=== PATIENT | male | born 1975 | race African-American/Black ===

== ENCOUNTER 2024-12-05 13:39 | Inpatient (IN) | payer OTHER ==
[~2024-12-05] VITALS: Ht 185.4 cm; Wt 81.2 kg
[~2024-12-05 13:39] MED LIST: AMOX-457 PO
[2024-12-05 14:17] LABS: PLATELET COUNT (AUTO) 264 K/uL (150-450); RED BLOOD CELL COUNT(AUTO) 3.92 MIL/uL (4.50-5.90); RED CELL DISTRIBUTION WIDTH 14.2 % (11.5-14.5); WHITE BLOOD COUNT (AUTO) 4.1 K/uL (4.5-11.0)
[2024-12-05 14:27] LABS: CREATININE 0.84 mg/dL (0.60-1.30); GLUCOSE,RANDOM 91 mg/dL (70-110); SODIUM SERUM 142 mmol/L (136-145); UREA NITROGEN, BLOOD 11 mg/dL (7-18)
[2024-12-05 14:28] LABS: CALCIUM, TOTAL 8.9 mg/dL (8.8-10.5); GLOMERULAR FILTR. RATE CALC > 60 mL/min (>60)
[2024-12-05 14:32] LABS: ASPARTATE AMINOTRANSFERASE 17 U/L (15-37); CREATINE KINASE, TOTAL ONLY 154 U/L (39-308); TOTAL PROTEIN, SERUM 6.7 g/dL (6.4-8.2)
[2024-12-05 14:34] LABS: TROPONIN I-HIGH SENSITIVITY Less Than 4 ng/L (<76)
[2024-12-05 14:44] LABS: ALCOHOL, BLOOD (SERUM) < 3 mg/dL (0-10)
[2024-12-05 15:26] LABS: COVID AG,FIA SOURCE NASAL SWAB
[2024-12-05] MEDS ORDERED: DEXTROSE 5% IV PRN (15:30)
[2024-12-05] MEDS ORDERED: NALOXONE HCL IV PRN (15:30)
[2024-12-05] MEDS ORDERED: WATER IV PRN (15:30)
[2024-12-05 15:37] LABS: PH,URINE DRUG SCREEN 8.0 (5.0-8.0)
[2024-12-05 15:44] LABS: ALCOHOL, URINE DRUG SCREEN NEGATIVE (NEGATIVE); AMPHET/METH SCREEN,URINE POSITIVE (NEGATIVE); BARBITURATE SCREEN, URINE NEGATIVE (NEGATIVE); CANNABINOID SCREEN,URINE POSITIVE (NEGATIVE); COCAINE SCREEN,URINE NEGATIVE (NEGATIVE); METHADONE SCREEN, URINE NEGATIVE (NEGATIVE)
[2024-12-05 15:45] LABS: SARS-COV2 (COVID) ANTIGEN,FIA Negative (Negative)
[2024-12-05] MEDS ORDERED: NALOXONE HCL 1 MG/ML 2 ML SYRINGE IVP PRN (17:30)
[2024-12-05] MEDS ORDERED: ACETAMINOPHEN 325 MG TABLET PO PRN (17:30)
[2024-12-05] MEDS: NALOXONE HCL 1 MG/ML 2 ML SYRINGE IVP ONE (18:30)
[2024-12-05] MEDS: ONDANSETRON HCL 4 MG/2 ML VIAL IVP PRN (18:52)
[2024-12-05] MEDS: LORazepam 2 MG/ML VIAL IVP ONE (18:55)
[2024-12-05 20:50] VITALS: BP 117/80; PULSE 84; RESP 12; TEMP 99; O2SAT 100
[2024-12-05] MEDS: DOCUSATE SODIUM 100 MG CAPSULE PO SCH (21:00)
[2024-12-05] MEDS: NALOXONE HCL 1 MG/ML 2 ML SYRINGE IVP SCH (22:01)
[2024-12-05] MEDS: MAGNESIUM SULFATE 2 GM, MVI, ADULT NO.1 WITH VIT K 10 ML, THIAMINE 100 MG, FOLIC ACID 1... IV ONE (22:12)
[2024-12-05] MEDS: HEPARIN SODIUM,PORCINE 5,000 UNITS/ML VIAL SQ SCH (23:09)
[2024-12-05 23:51] VITALS: BP_SYST 105; BP_SYST 99; BP_DIAS 86; PULSE 85; RESP 26; TEMP 98.4; O2SAT 100
[2024-12-06] MEDS ORDERED: ALBUTEROL SULFATE 2.5 MG/0.5 ML NEB SOLUTION NEB PRN (01:45)
[2024-12-06] MEDS ORDERED: IPRATROPIUM BROMIDE 0.5 MG/2.5 ML NEB SOLUTION NEB PRN (01:45)
[2024-12-06] MEDS ORDERED: SODIUM CHLORIDE 0.9% 250 ML IV ONE (02:18)
[2024-12-06] MEDS: PIPERACILLIN/TAZO 3.375 GM/D5W 50 ML IV SCH (02:58)
[2024-12-06 03:31] VITALS: BP 122/93; PULSE 79; RESP 26; TEMP 98.4; O2SAT 100
[2024-12-06 05:05] VITALS: RESP 22; O2SAT 100
[2024-12-06 06:13] LABS: PLATELET COUNT (AUTO) 290 K/uL (150-450); RED BLOOD CELL COUNT(AUTO) 4.19 MIL/uL (4.50-5.90); RED CELL DISTRIBUTION WIDTH 14.3 % (11.5-14.5); WHITE BLOOD COUNT (AUTO) 3.5 K/uL (4.5-11.0)
[2024-12-06 06:18] LABS: CALCIUM, TOTAL 8.9 mg/dL (8.8-10.5); CREATININE 0.81 mg/dL (0.60-1.30); GLOMERULAR FILTR. RATE CALC > 60 mL/min (>60); GLUCOSE,RANDOM 100 mg/dL (70-110); SODIUM SERUM 140 mmol/L (136-145); UREA NITROGEN, BLOOD 11 mg/dL (7-18)
[2024-12-06 08:29] VITALS: BP 139/80; PULSE 61; RESP 20; TEMP 97.7; O2SAT 99
[2024-12-06] MEDS ORDERED: NALOXONE HCL 1 MG/ML 2 ML SYRINGE IVP SCH (22:00)
== END 2024-12-06 09:55 | disposition left against medical advice (07) | DRG 917 ==
LOC: EMS 13:42 → EDH 17:21 → 5S 20:55
PROVIDERS: ADMIT Internal Medicine; ATTEND Internal Medicine
DX: T40.2X1A Poisoning by other opioids, accidental (unintentional), initial encounter (principal); G92.9 Unspecified toxic encephalopathy; R06.82 Tachypnea, not elsewhere classified; F17.210 Nicotine dependence, cigarettes, uncomplicated; Z20.822 Contact with and (suspected) exposure to COVID-19; J45.909 Unspecified asthma, uncomplicated; F11.129 Opioid abuse with intoxication, unspecified; F15.129 Other stimulant abuse with intoxication, unspecified; Z91.010 Allergy to peanuts; Y92.89 Other specified places as the place of occurrence of the external cause
CPT/HCPCS: 71045; 80048; 80076; 80307; 82550; 83735; 83880; 84484; 85025; 93005; 96374; 96375; 99285; G0378; G0480; J1644; J2060; J2312; J2405; J2543; J2919; J3411; J3475; J3490; J7030; J7050; J7060; 36415-L1; 36415-TC